=== PATIENT | male | born 1945 | race Caucasian/White ===

== ENCOUNTER 2018-03-15 16:09 | Emergency (ER) | payer MEDICARE, BC ==
--- NOTE | 2018-03-15 16:17 | EDM.PDOC ---
ED HPI GENERAL MEDICAL PROBLEM - General Chief Complaint: Upper Extremity Injury/Pain Stated Complaint: right upper arm pain Time Seen by Provider: 03/15/18 16:10 Source of Information: Reports: Patient, Old Records ([facility] chart/EMR) - History of Present Illness INITIAL COMMENTS - FREE TEXT/NARRATIVE: Patient drove himself to the emergency room via private automobile from [place], [place] after injuring his right arm at about 10:30 a.m. 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 He was not directly hit by the animal with no history of fall, head injury, neck pain, back pain, paresthesias, neurological deficits, foreign body, or other complaints or injuries. He is right-handed and has never injured this extremity in the past. The patient denies any chest pain/ pressure, heart flutter, dizziness, orthostasis, orthopnea, diaphoresis, paresthesias, recent decreased exercise tolerance, or any other anginal-type symptoms. No recent history of abdominal pain, heartburn, nausea, diarrhea, melena, gross hematochezia, or any food intolerance, including fatty foods, etc. with normal bowel movement earlier this morning. He denies any gross hematuria or other UTI symptoms. The patient also denies any recent fever, cough , wheezing, dyspnea, etc.. He complains of 9/10 pain with movement with only 4/ 10 pain at rest. Onset: Today, Sudden Onset Date: 03/15/18 Onset Time: 10:30 Duration: Constant Location: Reports: Upper Extremity, Right. Denies: Head, Neck, Chest, Abdomen, Back, Pelvis, Upper Extremity, Left, Lower Extremity, Left, Lower Extremity, Right, Generalized, Radiates to Quality: Reports: Ache, Burning, Same as Previous Episode Severity: Severe Improves with: Reports: Rest Worsens with: Reports: Movement Context: Reports: Trauma (As above) Associated Symptoms: Denies: Confusion, Chest Pain, Cough, Diaphoresis, Fever/ Chills, Headaches, Loss of Appetite, Malaise, Nausea/Vomiting, Shortness of Breath, Syncope, Weakness Right Shoulder Pain Score (Numeric/FACES): 9 - Related Data Allergies Allergy/AdvReac Type Severity Reaction Status Date / Time Sulfa (Sulfonamide Allergy Other Verified 03/15/18 16:20 Antibiotics) Home Meds: Home Meds Ascorbate Calcium [Vitamin C] 500 mg PO DAILY 03/15/18 [History] Cholecalciferol (Vitamin D3) [Vitamin D3] 1 tab PO DAILY 03/15/18 [History] Gluc 2KCl/Chondr/Lizbeth Hy/Hy Ac [Glucosamine & Chondroitin Cap] 1 tab PO BID 01/28 [History] Insulin Aspart [NovoLOG] 8 units SUBCUT DAILY@08 03/15/18 [History] Insulin Aspart [NovoLOG] 13 unit SUBCUT DAILY@1800 03/15/18 [History] Insulin Glargine,Hum.Rec.Anlog [Basaglar Kwikpen U-100] 29 units SUBCUT DAILY [History] Metoprolol Tartrate 25 mg PO BID 03/15/18 [History] Multivitamin [Multiple Vitamins] 1 tab PO DAILY 03/15/18 [History] atorvaSTATin [Lipitor] 40 mg PO BEDTIME 03/15/18 [History] glipiZIDE [Glucotrol] 10 mg PO BID 03/15/18 [History] Past Medical History HEENT History: Reports: Hard of Hearing, Other (See Below) Other HEENT History: Mild bilateral presbycusis Cardiovascular History: Reports: Arrhythmia, Bypass, CAD, Cardiomyopathy, Heart Failure, Heart Murmur, High Cholesterol, Hypertension, [place], Other (See Below) Other Cardiovascular History: Aortic valve stenosis and mitral valve insufficiency by clinical exam. PVCs. Cardiomegaly. Gastrointestinal History: Reports: GERD, Hiatal Hernia Genitourinary History: Reports: BPH Musculoskeletal History: Reports: Arthritis, Back Pain, Chronic, Fracture, Gout , Neck Pain, Chronic, Osteoarthritis, Other (See Below) Other Musculoskeletal History: Right distal fibular/ankle fracture on 09/11/06 Endocrine/Metabolic History: Reports: IDDM Oncologic (Cancer) History: Reports: Colon, Other (See Below) Other Oncologic History: Colon cancer requiring surgery as below - Past Surgical History HEENT Surgical History: Reports: Adenoidectomy, Tonsillectomy, Other (See Below) Other HEENT Surgeries/Procedures: Tonsillectomy and adenoidectomy as a child. Cardiovascular Surgical History: Reports: Coronary Artery Bypass, Other (See Below) Other Cardiovascular Surgeries/Procedures: CABG in 2011 GI Surgical History: Reports: Appendectomy, Colon, Colonoscopy, Hernia, Abdominal, Other (See Below) Other GI Surgeries/Procedures: Cathy fundoplication. Colon resection secondary to colon cancer in about 1999. Appendectomy in his 30s. Musculoskeletal Surgical History: Reports: Arthroscopic Knee, Other (See Below) Other Musculoskeletal Surgeries/Procedures:: Right knee meniscus repair on - Past Imaging History Past Imaging History: Reports: Stress Testing (Low level cardiac stress test on 01/04/12 with Cardiolite stress test on 02/15/07 with ejection fraction of 59%), Venous Doppler (Negative venous Doppler study of the right leg on 11/11/10) Social & Family History - Tobacco Use Smoking Status *Q: Never Smoker Tobacco Use Within Last Twelve Months: No Used Tobacco, but Quit: No Smoking Cessation Information Provided To Patient: No Second Hand Smoke Exposure: No Second Hand Smoke Education Provided: No - Living Situation & Occupation Living situation: Reports: (1990s. 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 ED EXAM, GENERAL - Physical Exam Exam: See Below Exam Limited By: No Limitations General Appearance: Alert, WD/WN, No Apparent Distress Head: Atraumatic, Normocephalic. No: Facial Swelling, Facial Tenderness, Sinus Tenderness Neck: Normal Inspection, Supple, Non-Tender, Full Range of Motion. No: Lymphadenopathy (L), Lymphadenopathy (R), Thyromegaly Respiratory/Chest: No Respiratory Distress, Lungs Clear, Normal Breath Sounds, No Accessory Muscle Use, Chest Non-Tender. No: Pleural Rub Cardiovascular: Normal Peripheral Pulses, Regular Rate, Rhythm, No Edema, No Gallop, No JVD, No Murmur, No Rub. No: Gallop/S3, Gallop/S4, Friction Rub Peripheral Pulses: 2+: Radial (L), Radial (R) GI/Abdominal: Normal Bowel Sounds, Soft, Non-Tender, No Organomegaly, No Distention, No Abnormal Bruit, No Mass, Pelvis Stable. No: Guarding (Male) Exam: Deferred Rectal (Males) Exam: Deferred Back Exam: Normal Inspection, Full Range of Motion. No: CVA Tenderness (L), CVA Tenderness (R), Muscle Spasm Extremities: No Pedal Edema, Normal Capillary Refill, Arm Pain (Moderate palpation pain over the mid triceps region of the right arm with no crepitation , instability, etc.), Limited Range of Motion (Right arm secondary to pain moderate), Other (Mild swelling in the right mid triceps region however no ecchymosis, deformity, etc.). No: Bianca's Sign Neurological: Alert, Oriented, CN II-XII Intact, Normal Cognition, Normal Gait, Normal Reflexes, No Motor/Sensory Deficits Psychiatric: Normal Affect Skin Exam: Warm, Dry, Intact, Normal Color, No Rash. No: Diaphoretic, Wound/ Incision Lymphatic: No Adenopathy Course - Vital Signs Last Recorded V/S: Last Vital Signs Temp 36.8 C 03/15/18 16:18 Pulse 84 03/15/18 16:18 Resp 18 03/15/18 16:18 BP 150/76 H 03/15/18 16:18 Pulse Ox 96 03/15/18 16:18 Vital Signs - 24 hr 03/15/18 16:18 Temperature [ 36.8 C Temporal] Pulse, 84 Peripheral [ Left Pulse Oximetry] Respiratory 18 Rate Blood Pressure 150/76 H [Left Upper Arm ] O2 Sat by Pulse 96 Oximetry - Orders/Labs/Meds Orders: Active Orders 24 hr Category Date Time Status Humerus Rt [CR] Stat Exams 03/15/18 16:17 Taken Obtain Past Medical Record [OM.PC] Routine Oth 03/15/18 16:17 Active Labs: None Meds: None - Radiology Interpretation Free Text/Narrative:: X-rays of the right humerus, 2 views, shows evidence of moderate soft tissue swelling but no fracture, dislocation, foreign body, etc. Note moderate osteoarthritic changes present. Departure - Departure Time of Disposition: 17:25 Disposition: Home, Self-Care 01 Clinical Impression: IDDM (insulin dependent diabetes mellitus), Coronary artery disease, Peptic reflux disease, Hypertension, Hyperlipidemia Contusion Qualifiers: Encounter type: initial encounter Contusion area: upper arm Laterality: right Qualified Code(s): S40.021A - Contusion of right upper arm, initial encounter Osteoarthritis Qualifiers: Osteoarthritis location: multiple joints Osteoarthritis type: primary Qualified Code(s): M15.0 - Primary generalized (osteo)arthritis - Discharge Information Instructions: Contusion Referrals: Linda Collado PA-C [Primary Care Provider] - Forms: ED Department Discharge Additional Instructions: 1. Follow up with your regular provider in 10-14 days as needed, if symptoms persist. 2. Tylenol 650 mg by mouth every 4 hours and/or OTC ibuprofen 2-3 tabs by mouth every 6 hours with food as directed./needed. 3. BenGay or equivalent, heating pad, and/or ice packs as directed. 4. Advance activity as tolerated with range of motion exercises recommended discussed - Problem List & Annotations (1) Contusion SNOMED Code(s): 744821325 Code(s): T14.8XXA - OTHER INJURY OF UNSPECIFIED BODY REGION, INITIAL ENCOUNTER Status: Acute Priority: High Current Visit: Yes Onset Date: Annotation/Comment:: A trauma code was immediately considered in this patient secondary to the mechanism of injury, however based on the clinical presentation of the patient, previous history, etc. this provider did not feel that a trauma code would affect the patient's level of care and was not warranted. Note that the patient was not directly hit by any of the cattle. Symptomatic relief as per discharge instructions. He does not need a work excuse by his history. Otherwise symptomatic relief, activity restrictions, etc. as per discharge instructions. Qualifiers: Encounter type: initial encounter Contusion area: upper arm Laterality: right Qualified Code(s): S40.021A - Contusion of right upper arm, initial encounter (2) Osteoarthritis SNOMED Code(s): 482793280 Code(s): M19.90 - UNSPECIFIED OSTEOARTHRITIS, UNSPECIFIED SITE Status: Chronic Priority: Medium Current Visit: Yes Annotation/Comment:: Otherwise stable by history with additional history of hyperuricemia with no recent gout attacks. Qualifiers: Osteoarthritis location: multiple joints Osteoarthritis type: primary Qualified Code(s): M15.0 - Primary generalized (osteo)arthritis (3) IDDM (insulin dependent diabetes mellitus) SNOMED Code(s): 44111719 Code(s): E11.9 - TYPE 2 DIABETES MELLITUS WITHOUT COMPLICATIONS; Z79.4 - MCFP (CURRENT) USE OF INSULIN Status: Chronic Priority: Medium Current Visit: Yes Annotation/Comment:: Stable by history (4) Coronary artery disease SNOMED Code(s): 62303128 Code(s): I25.10 - ATHSCL HEART DISEASE OF [place] CORONARY ARTERY W/O ANG PCTRS Status: Chronic Priority: Medium Current Visit: Yes Annotation/ Comment:: No recent history of chest pain or anginal type symptoms. Qualifiers: Coronary Disease-Associated Artery/Lesion type: bypass graft [place] vs. transplanted heart: [place] heart Associated angina: without angina Qualified Code(s): I25.810 - Atherosclerosis of coronary artery bypass graft(s) without angina pectoris (5) Hyperlipidemia SNOMED Code(s): 31507526 Code(s): E78.5 - HYPERLIPIDEMIA, UNSPECIFIED Status: Chronic Priority: Medium Current Visit: Yes Annotation/Comment:: Under therapy. Stable by history. Qualifiers: Hyperlipidemia type: unspecified Qualified Code(s): E78.5 - Hyperlipidemia , unspecified (6) Hypertension SNOMED Code(s): 73407525 Code(s): I10 - ESSENTIAL (PRIMARY) HYPERTENSION Status: Chronic Priority : Medium Current Visit: Yes Annotation/Comment:: Blood pressure mildly elevated in the emergency room likely secondary to recent injury. Otherwise stable by history. Continue to observe closely by his regular providers. Qualifiers: Hypertension type: essential hypertension Qualified Code(s): I10 - Essential (primary) hypertension (7) Peptic reflux disease SNOMED Code(s): 356744056 Code(s): K21.9 - GASTRO-ESOPHAGEAL REFLUX DISEASE WITHOUT ESOPHAGITIS Status: Chronic Priority: Medium Current Visit: Yes Annotation/Comment:: Stable by history - Problem List Review Problem List Initiated/Reviewed/Updated: Yes - My Orders Last 24 Hours: My Active Orders 03/15/18 16:17 Humerus Rt [CR] Stat Obtain Past Medical Record [OM.PC] Routine - Assessment/Plan Last 24 Hours: My Active Orders 03/15/18 16:17 Humerus Rt [CR] Stat Obtain Past Medical Record [OM.PC] Routine Assessment:: As above Plan: As above. Extensive precautions were given to the patient, who is in agreement with the treatment plan. See Patient Instructions for further treatment and plan.
== END 2018-03-15 17:25 | disposition home or self-care (01) ==
LOC: LL.ED 16:09
DX: S40.021A Contusion of right upper arm, initial encounter (principal); M15.0 Primary generalized (osteo)arthritis; E11.9 Type 2 diabetes mellitus without complications; K21.9 Gastro-esophageal reflux disease without esophagitis; I25.10 Atherosclerotic heart disease of native coronary artery without angina pectoris; E78.5 Hyperlipidemia, unspecified; I11.0 Hypertensive heart disease with heart failure; I50.9 Heart failure, unspecified; I25.2 Old myocardial infarction; Z88.2 Allergy status to sulfonamides; Z79.4 Long term (current) use of insulin; Z79.899 Other long term (current) drug therapy; W23.0XXA Caught, crushed, jammed, or pinched between moving objects, initial encounter
CPT/HCPCS: 73060-RT; 99283; 99284